=== PATIENT | male | born 1950 | race Caucasian/White ===

== ENCOUNTER 2021-12-31 06:00 | Day surgery (SDC) | payer MEDICARE, OTHER ==
[~2021-12-31] VITALS: Ht 177.8 cm; Wt 94.5 kg
[~2021-12-31 06:00] MED LIST: ADVAIR HFA 115-12 GM; FLOVENT DISKUS50 MCG INH; IPRAT-ALBUT 0.5-3 ML INH; METHOCARBAMOL500 MG PO; OMEPRAZOLE20 MG PO; OXYCODON-ACETA1 EAC2 PO; PERCOCET 10-321 EACH PO; PERCOCET 7.5-31 EACH PO; PROAIR HFA8.5 GM INH; SINGULAIR10 MG PO; SPIRIVA RESPIMAT4 G1 INH; ULTRAM50 MG PO; ZESTRIL40 MG
[2021-12-31] MEDS ORDERED: IBUPROFEN600 MG PO (08:22)
[2021-12-31] MEDS ORDERED: ACETAMINOPHEN500 MG PO (08:22)
[2021-12-31] MEDS ORDERED: OXYCODON-ACETA1 EAC2 PO (08:22)
--- NOTE | 2021-12-31 22:04 | EKG ---
[facility] [address] [facility] [place] [address] Signed Normal sinus rhythm Incomplete right bundle branch block Borderline ECG When compared with ECG of 07-APR-2016 10:43, Nonspecific T wave abnormality no longer evident in Lateral leads Confirmed by ESTEE DAVIDSON MD ([id number]) on 12/31/2021 10:04:04 PM Electronically Signed By: ESTEE DAVIDSON MD 12/31/212203 PATIENT NAME: ALISHAJEEVAN AUDRA Electrocardiogram DATE OF : 46 PHYSICIAN: ESTEE DAVIDSON MD REPORT #: [id number] REPORT IS CONFIDENTIAL AND NOT TO BE RELEASED WITHOUT AUTHORIZATION
--- NOTE | 2022-01-01 09:15 | OR ---
[facility] [address] [place], [place] [address] Signed DATE OF OPERATION: 12/31/2021 SURGEON: Yonis Conteh MD PREOPERATIVE DIAGNOSIS: Right superior gluteal soft tissue mass (symptomatic). POSTOPERATIVE DIAGNOSES: Right superior gluteal soft tissue mass (symptomatic), lipoma 6 cm subfascial. PROCEDURE: Excision of right superior gluteal subfascial soft tissue mass consistent with 6 cm lipoma. ANESTHESIA: Local with monitored anesthesia care, Yonis Newton CRNA (Marcaine 0.25% with epinephrine). INDICATION: This 71-year-old white man is a patient of ERNESTINA Becker. He is known to me from the past. He has noted a soft tissue mass of the right superior gluteal area, which is increasingly painful for him. Clinically it is consistent with lipoma. He is admitted at this time to undergo excision under IV sedation and local given its size and depth. The risk of bleeding, infection, cosmetic deformity, recurrence and so forth were all reviewed with him. He understands and wished to proceed. FINDINGS: Indeed the lesion highly consistent with lipoma was excised. Extended below Camper's fascia of the posterior aspect, but was well encapsulated overall and completely excised measuring 6 cm. DESCRIPTION OF PROCEDURE: The patient was brought to the operating room and placed in lateral decubitus position, given intravenous sedation with propofol infusional technique and the area was prepared with a chlorhexidine solution and draped sterilely. Preoperative antibiotics were not administered. Sequential compression device stockings were used. The palpable mass, which had been previously marked, was injected in the subdermal space with 0.25% Marcaine with epinephrine. A transverse incision was made along the line of skin tension. Dissection carried through the dermis with electrocautery. Using blunt and electrocautery dissection, the lipomatous mass was freed from the surrounding soft tissue and dissected more fully. Extended below the 1st thin fascial layer (Camper's Electronically Signed By: YONIS CONTEH MD 01/01/22 0915 PATIENT NAME: JEEVAN BRITO OPERATIVE REPORT DATE OF : 46 REPORT #: [id number] PHYSICIAN: YONIS CONTEH MD PCP: LALITHA JAY PA-C REPORT IS CONFIDENTIAL AND NOT TO BE RELEASED WITHOUT AUTHORIZATION [address] [address] Signed fascia) and a bit deeper than that and on that basis fully excised. Electrocautery was used for hemostasis as appropriate. Once excised, this lesion was measured to be 6 cm in size. Additional local anesthetic was injected totaling 20 mL. The wound was then closed with interrupted 2-0 Vicryl in deep dermal layer and running subcuticular 3-0 Vicryl for the skin. Steri-Strips were applied as was an Acticoat dressing. BLOOD LOSS: Minimal. COMPLICATIONS: None. MD BAKARI Ravi/ROWDY /[id number] cc: Lalitha Jay PA-C Copies: LALITHA JAY PA-C ~ Electronically Signed By: YONIS CONTEH MD 01/01/22 0915 PATIENT NAME: JEEVAN BRITO OPERATIVE REPORT DATE OF : 46 REPORT #: [id number] PHYSICIAN: YONIS CONTEH MD PCP: LALITHA JAY PA-C REPORT IS CONFIDENTIAL AND NOT TO BE RELEASED WITHOUT AUTHORIZATION
--- NOTE | 2022-01-03 17:05 | PATH ---
[facility] [address] [facility] [place] [address] Signed SPECIMEN(S): A RIGHT GLUTEAL SPECIMEN SOURCE: A. RIGHT GLUTEAL CLINICAL HISTORY: Soft tissue mass FINAL PATHOLOGIC DIAGNOSIS: Right gluteal soft tissue mass, soft tissue mass, right hip: - [place] lobulated adipose tissue consistent with lipoma. JVR:silvia:[id number] MICROSCOPIC EXAMINATION: Histologic sections of all submitted blocks are examined by light microscopy. These findings, together with the gross examination, support the pathologic diagnosis. GROSS DESCRIPTION: The specimen, labeled "PW, A," and designated on the requisition "right gluteal soft tissue mass, soft tissue mass right hip," is received fresh and placed in formalin and consists of a thinly encapsulated, 0.4 0.5 g, lobulated, yellow, rubbery, 7.1 x 6.3 x 2.7 cm fibrofatty tissue mass. The external surface of the specimen is inked blue and the specimen is cross-sectioned to reveal yellow, homogenous, grossly unremarkable tissue without a discrete mass/lesion. [employer] sections are submitted in two cassettes (A1-A2) AI (under the direct supervision of a pathologist) The Gross Description was prepared using a voice recognition system. The report was reviewed for accuracy; however, sound-alike word errors, addition and/or deletions may occur. If there is any question about this report, please contact Client Services. PERFORMING LABORATORY: The technical component was performed by [facility], [address] [place] [id number] (CLIA# [id number]). Professional interpretation was performed by [facility], [address] [place] [id number] (CLIA#: [id number]). Diagnostician: Bruce Alvarez MD Pathologist PATIENT NAME: JEEVAN BRITO PATHOLOGY DATE OF : 46 REPORT #: [id number] PHYSICIAN: [facility] PCP: KASHMIR AGUIRRE PA-C REPORT IS CONFIDENTIAL AND NOT TO BE RELEASED WITHOUT AUTHORIZATION [address] [place], [place] [address] Signed Electronically Signed 01/03/2022 Copies: ~ PATIENT NAME: JEEVAN BRITO PATHOLOGY DATE OF : 46 REPORT #: [id number] PHYSICIAN: [facility] PCP: KASHMIR AGUIRRE PA-C REPORT IS CONFIDENTIAL AND NOT TO BE RELEASED WITHOUT AUTHORIZATION
== END 2021-12-31 09:18 | disposition home or self-care (01) ==
LOC: DS 06:00 → OPS 06:00 → DS 07:30 → OPS 09:18
PROVIDERS: ATTEND Surgery
PROC: 0JB70ZZ Excision of Back Subcutaneous Tissue and Fascia, Open Approach (ICD-10-PCS; principal; 2021-12-31 07:30)
DX: D17.1 Benign lipomatous neoplasm of skin and subcutaneous tissue of trunk (principal); I10 Essential (primary) hypertension; I45.19 Other right bundle-branch block; J68.3 Other acute and subacute respiratory conditions due to chemicals, gases, fumes and vapors; J44.1 Chronic obstructive pulmonary disease with (acute) exacerbation
CPT/HCPCS: 00731; 93005; 93010; J1100; J1885; J2250; J2405; J2704; J2765; J3010; J7121